=== PATIENT | female | born 1970 | race Caucasian/White ===

== ENCOUNTER 2016-12-31 19:35 | Emergency (ER) | payer OTHER ==
[~2016-12-31] VITALS: Ht 170.1 cm; Wt 81.6 kg
[~2016-12-31 19:35] MED LIST: ALBUTEROL2.5 MG/0.5 INH; ALEVE220 MG PO; BACTRIM DS 8001 TA1 PO; BP PILL; BREO ELLIPTA 21 EACH IH; CLARITIN10 MG PO; FLEXERIL10 MG PO; FLONASE 0.05% 121 EA NAS; HYDR12.5C PO; HYDROCODONE BIT1 T11 PO; LOMOTIL 0.025 M1 TA1 PO; MACROBID100 M1 PO; MOTRIN800 MG PO; NAPROSYN500 MG PO; NEURONTIN100 MG PO; PREDNICOT20 MG PO; PREDNISONE10 MG PO; PROAIR HFA0.09 MG/AC INH; ROBITUSSIN AC 110 ML PO; SUDAFED 12 HOU120 MG PO; ULTRAM50 MG PO; ZITHROMAX Z PA250 MG PO; ZITHROMAX250 MG PO; ZOFRAN ODT4 MG SL; Zofran4 MG PO
[2016-12-31] MEDS ORDERED: PREDNISONE10 MG PO (20:10)
== END 2016-12-31 20:22 | disposition home or self-care (01) ==
LOC: ED 19:35
DX: M54.16 Radiculopathy, lumbar region (principal); D17.1 Benign lipomatous neoplasm of skin and subcutaneous tissue of trunk; R20.9 Unspecified disturbances of skin sensation; M79.605 Pain in left leg; Z88.0 Allergy status to penicillin; Z88.1 Allergy status to other antibiotic agents; Z79.899 Other long term (current) drug therapy

== ENCOUNTER 2017-01-06 11:40 | Emergency (ER) | payer OTHER ==
[~2017-01-06] VITALS: Ht 170.1 cm; Wt 81.6 kg
== END 2017-01-06 13:23 | disposition home or self-care (01) ==
LOC: ED 11:40
DX: S60.221A Contusion of right hand, initial encounter (principal); Z88.0 Allergy status to penicillin; Z88.1 Allergy status to other antibiotic agents; Z79.899 Other long term (current) drug therapy; W50.1XXA Accidental kick by another person, initial encounter; Y93.9 Activity, unspecified; Y92.9 Unspecified place or not applicable; Y99.9 Unspecified external cause status

== ENCOUNTER 2017-05-01 12:09 | Emergency (ER) | payer OTHER ==
[~2017-05-01] VITALS: Ht 170.1 cm; Wt 77.1 kg
[2017-05-01 12:40] LABS: BASO # 0.1 10*3/uL (0.0-0.1); BASO % 0.6 % (0.0-1.0); EOS # 0.2 10*3/uL (0.0-0.4); EOS % 1.6 % (1.0-4.0); HEMATOCRIT 37.7 % (37.0-47.0); HEMOGLOBIN 12.6 g/dl (12.0-16.0); LYMPH # 2.6 10*3/uL (1.3-4.4); LYMPH % 25.8 % (27.0-41.0); MEAN CORPUSCULAR HGB 30.1 pg (27.0-31.0); MEAN CORPUSCULAR HGB CONC 33.4 g/dl (33.0-37.0); MEAN PLATELET VOLUME 11.4 fl (9.6-12.3); MONO # 0.8 10*3/uL (0.1-1.0); MONO % 8.2 % (3.0-9.0); NEUT # 6.4 10*3/uL (2.3-7.9); NEUT % 63.6 % (47.0-73.0); PLATELET COUNT AUTOMATED 196 10*3/uL (130-400); RED BLOOD COUNT 4.19 10*6/uL (4.10-5.10); RED CELL DISTRI WIDTH 12.2 % (0-14.5)
[2017-05-01] MEDS ORDERED: ROBITUSSIN DM 105 ML PO (12:46)
[2017-05-01] MEDS ORDERED: FLONASE ALLERG9.9 ML NAS (12:46)
[2017-05-01] MEDS ORDERED: PREDNISONE10 MG PO (12:46)
[2017-05-01] MEDS ORDERED: CLARITIN10 MG PO (12:46)
[2017-05-01 12:56] LABS: ALBUMIN 3.6 gm/dl (3.1-4.5); ALKALINE PHOSPHATASE 54 U/L (45-117); BUN 10 mg/dl (7-24); CHLORIDE 109 mmol/L (98-107); CREATININE 0.58 mg/dL (0.55-1.02); POTASSIUM 3.8 mmol/L (3.5-5.1); SGOT/AST 8 IU/L (3-35); SGPT/ALT 13 U/L (12-78); SODIUM 141 mmol/L (136-145); TOTAL PROTEIN 6.8 gm/dL (6.4-8.2)
[2017-05-01] MEDS ORDERED: DUONEB 3 MG/3 ML3 M1 INH (13:32)
== END 2017-05-01 13:29 | disposition home or self-care (01) ==
LOC: ED 12:09
PROVIDERS: Nurse Practitioner Family
DX: B34.9 Viral infection, unspecified (principal); R03.0 Elevated blood-pressure reading, without diagnosis of hypertension; Z98.890 Other specified postprocedural states; Z79.899 Other long term (current) drug therapy; Z88.0 Allergy status to penicillin; Z88.1 Allergy status to other antibiotic agents

== ENCOUNTER 2017-05-19 20:12 | Emergency (ER) | payer OTHER ==
[~2017-05-19] VITALS: Ht 170.1 cm; Wt 84.4 kg
[~2017-05-19 20:12] MED LIST changes: +DUONEB 3 MG/3 ML3 M1 INH; +FLONASE ALLERG9.9 ML NAS; +ROBITUSSIN DM 105 ML PO
[2017-05-19] MEDS ORDERED: ZITHROMAX250 MG PO (21:13)
== END 2017-05-19 21:17 | disposition home or self-care (01) ==
LOC: ED 20:12
DX: J01.00 Acute maxillary sinusitis, unspecified (principal); M54.30 Sciatica, unspecified side; J45.901 Unspecified asthma with (acute) exacerbation; Z88.0 Allergy status to penicillin; Z88.1 Allergy status to other antibiotic agents; Z79.899 Other long term (current) drug therapy

== ENCOUNTER → 2017-07-07 | Outpatient (CLI) | payer OTHER ==
[2017-07-07 16:22] LABS: BASO # 0.1 10*3/uL (0.0-0.1); BASO % 0.8 % (0.0-1.0); EOS # 0.1 10*3/uL (0.0-0.4); EOS % 1.2 % (1.0-4.0); HEMATOCRIT 38.8 % (37.0-47.0); HEMOGLOBIN 13.3 g/dl (12.0-16.0); LYMPH # 3.6 10*3/uL (1.3-4.4); LYMPH % 30.9 % (27.0-41.0); MEAN CELL VOLUME 89.2 fl (81.0-99.0); MEAN CORPUSCULAR HGB 30.6 pg (27.0-31.0); MEAN CORPUSCULAR HGB CONC 34.3 g/dl (33.0-37.0); MEAN PLATELET VOLUME 11.3 fl (9.6-12.3); MONO # 0.9 10*3/uL (0.1-1.0); MONO % 7.3 % (3.0-9.0); NEUT % 59.5 % (47.0-73.0); PLATELET COUNT AUTOMATED 220 10*3/uL (130-400); RED BLOOD COUNT 4.35 10*6/uL (4.10-5.10); RED CELL DISTRI WIDTH 12.6 % (0-14.5); WHITE BLOOD COUNT 11.7 10*3/uL (4.8-10.8)
[2017-07-07 16:47] LABS: THYROID STIM HORMONE (HS) 1.46 uIU/ml (0.358-4.75)
[2017-07-08 08:10] LABS: RHEUMATOID ARTHRITIS FACTOR <10.0 IU/mL (0.0-13.9)
[2017-07-08 11:04] LABS: ANA DIRECT Negative (Negative)
== END | disposition home or self-care (01) ==
LOC: ORTHO 02:17 → LAB 02:17 → ORTHO 18:45
PROVIDERS: Orthopaedic Surgery
DX: M06.831 Other specified rheumatoid arthritis, right wrist (principal); R53.82 Chronic fatigue, unspecified

== ENCOUNTER 2017-09-07 15:35 | Emergency (ER) | payer OTHER ==
[2017-09-07] MEDS ORDERED: ZITHROMAX250 MG PO (15:51)
[2017-09-07] MEDS ORDERED: ZYRTEC10 MG PO (15:51)
[2017-09-07] MEDS ORDERED: FLONASE ALLERG9.9 ML NAS (15:51)
== END 2017-09-07 15:59 | disposition home or self-care (01) ==
LOC: ED 15:35
DX: J01.90 Acute sinusitis, unspecified (principal); Z79.899 Other long term (current) drug therapy; Z98.890 Other specified postprocedural states; Z88.0 Allergy status to penicillin; Z88.1 Allergy status to other antibiotic agents

== ENCOUNTER → 2017-10-01 | Day surgery (SDC) | payer OTHER ==
[~2017-10-01] VITALS: Ht 170.1 cm; Wt 95.3 kg
[~2017-10-01] MED LIST changes: +LIDEX 0.05% CRE15 GM T; +NAPROXEN500 MG PO; +NORCO 5-325 TA1 EACH PO; +PRINIVIL10 MG PO; +ZYRTEC10 MG PO
--- NOTE | ~2017-10-01 | O ---
[place], [place] OPERATIVE NOTE NAME: MARILYN MENON UNIT #: [id number] ROOM: DOCTOR: DOMINICK DAHL MD BIRTHDATE: [birth year] DOS: 10/01/2017 PREOPERATIVE DIAGNOSIS: Back lipoma. POSTOPERATIVE DIAGNOSIS: Back lipoma. PROCEDURE: Excision of back lipoma. SURGEON: Dominick Dahl MD RESEARCH BIOSTATISTICIAN: KEON. ANESTHESIA: MAC with local (23 mL of 1% plain lidocaine). INDICATIONS: This is a 47-year-old lady with a longstanding history of a back lipoma who is here for the above-mentioned procedure. The procedure and its complications were explained to the patient in detail preoperatively. Complications that were discussed included but were not limited to bleeding, infection, hematoma/seroma/abscess formation, prolonged postoperative pain, and damage to lying vital structures. She agreed to proceed. DESCRIPTION OF PROCEDURE: After identifying the patient, the patient was brought to the operating suite and placed in a right lateral position. After IV sedation was administered, a timeout procedure was called and the parts were then painted and draped in the usual sterile fashion. A transverse incision was marked and local anesthesia was infiltrated. The skin incision was made and the edges were then dissected away from the lipoma with the help of blunt and sharp dissection. The lipoma was then removed in a piecemeal fashion and sent for histopathological diagnosis. Hemostasis was achieved and saline was used for irrigation. Thereafter, the subcutaneous tissue was approximated with the help of 3-0 Vicryl in a running fashion and the skin edges were then approximated with the help of 2-0 nylon in interrupted mattress fashion. A dressing was placed and the patient tolerated the procedure well and was brought back to the recovery room in a stable fashion. There were no complications. Dr. Dominick Dahl, the attending surgeon, was present throughout the operating case. [place], [place] OPERATIVE NOTE NAME: MARILYN MENON Stevie UNIT #: [id number] ROOM: DOCTOR: DOMINICK DAHL MD BIRTHDATE: [birth year] Dominick Dahl MD CM:OPRECORD:OPERATIVE NOTE [id number] DOMINICK DAHL MD 10/01/17 0901 interface
[2017-10-01 07:00] VITALS: BP 116/75
[2017-10-01 08:30] VITALS: BP 156/84
[2017-10-01 08:45] VITALS: BP 132/89
[2017-10-01 08:59] VITALS: BP 137/88
== END | disposition home or self-care (01) ==
LOC: SDC 09-25 09:30
DX: D17.1 Benign lipomatous neoplasm of skin and subcutaneous tissue of trunk (principal); I10 Essential (primary) hypertension; Z88.0 Allergy status to penicillin; J45.909 Unspecified asthma, uncomplicated; M06.9 Rheumatoid arthritis, unspecified; Z98.890 Other specified postprocedural states; Z79.899 Other long term (current) drug therapy; Z87.891 Personal history of nicotine dependence

== ENCOUNTER 2017-10-04 22:47 | Emergency (ER) | payer OTHER ==
[~2017-10-04] VITALS: Ht 170.1 cm; Wt 90.7 kg
[~2017-10-04 22:47] MED LIST changes: -LIDEX 0.05% CRE15 GM T
[2017-10-04] MEDS ORDERED: LIDEX 0.05% CRE15 GM T (23:29)
== END 2017-10-04 23:34 | disposition home or self-care (01) ==
LOC: ED 22:47
DX: R21 Rash and other nonspecific skin eruption (principal); Z79.899 Other long term (current) drug therapy; Z98.890 Other specified postprocedural states; Z88.0 Allergy status to penicillin; Z88.1 Allergy status to other antibiotic agents

== ENCOUNTER 2018-06-16 19:50 | Emergency (ER) | payer OTHER ==
[~2018-06-16] VITALS: Ht 170.1 cm; Wt 83.9 kg
[~2018-06-16 19:50] MED LIST changes: +LIDEX 0.05% CRE15 GM T; +LISINOPRIL-HCT1 EACH PO; +MONTELUKAST SOD10 MG PO; +TESSALON PERLE100 M1 PO
[2018-06-16] MEDS ORDERED: CLARITIN-D 121 EACH PO (21:05)
[2018-06-16] MEDS ORDERED: FLONASE ALLERG9.9 ML NAS (21:05)
== END 2018-06-16 21:19 | disposition home or self-care (01) ==
LOC: ED 19:50
DX: B34.9 Viral infection, unspecified (principal); H92.01 Otalgia, right ear; Z88.0 Allergy status to penicillin; Z88.1 Allergy status to other antibiotic agents; Z79.2 Long term (current) use of antibiotics; Z79.899 Other long term (current) drug therapy

== ENCOUNTER 2018-09-23 12:45 | Emergency (ER) | payer OTHER ==
[~2018-09-23] VITALS: Ht 170.1 cm; Wt 99.8 kg
--- NOTE | ~2018-09-23 | EKG ---
[place], [place] ELECTROCARDIOGRAM REPORT NAME: MARILYN MENON UNIT #: [id number] ROOM: DOCTOR: EPIPHANY DRAFT REPORT BIRTHDATE: [birth year] [facility] Test Date: 2018-09-23 Test Time: 13:36:31 Pat Name: MARILYN MENON Department: Room: Gender: F [employer] Mechanic: FARHANA : 1970 Requested By: LUIZ ALVES PA-C Order Number: [id number] Reading MD: Keith Rm Measurements Intervals [place] Rate: 64 P: 39 IN: 154 QRS: 16 QRSD: 88 T: 56 QT: 411 QTc: 424 Interpretive Statements Sinus rhythm Baseline wander in lead(s) II,III,aVR,aVF No previous ECG available for comparison Electronically Signed On 09-26-2018 8:56:50 PDT by Keith Rm CM:EKGRPT:ELECTROCARDIOGRAM REPORT [id number] LUIZ FUENTES DRAFT REPORT LUIZ ALVES PA-C
[~2018-09-23 12:45] MED LIST changes: +CLARITIN-D 121 EACH PO
[2018-09-23] MEDS ORDERED: PEPCID20 MG PO (16:01)
[2018-09-23] MEDS ORDERED: MEDROL DOSEPAK4 MG PO (16:01)
== END 2018-09-23 16:08 | disposition home or self-care (01) ==
LOC: ED 12:45
DX: L50.8 Other urticaria (principal); T43.295A Adverse effect of other antidepressants, initial encounter; F17.200 Nicotine dependence, unspecified, uncomplicated; Z98.890 Other specified postprocedural states; Z79.899 Other long term (current) drug therapy; Z88.0 Allergy status to penicillin; Z88.1 Allergy status to other antibiotic agents; Y92.89 Other specified places as the place of occurrence of the external cause

== ENCOUNTER → 2018-12-02 | Outpatient (CLI) | payer OTHER ==
[~2018-12-02] MED LIST changes: +MEDROL DOSEPAK4 MG PO; +PEPCID20 MG PO
== END | disposition home or self-care (01) ==
LOC: RAD 11:26
DX: M17.12 Unilateral primary osteoarthritis, left knee (principal); M25.762 Osteophyte, left knee; M25.462 Effusion, left knee

== ENCOUNTER 2018-12-17 16:22 | Emergency (ER) | payer OTHER ==
[~2018-12-17] VITALS: Ht 170.1 cm; Wt 89.4 kg
== END 2018-12-17 18:00 | disposition home or self-care (01) ==
LOC: ED 16:22
DX: S86.912A Strain of unspecified muscle(s) and tendon(s) at lower leg level, left leg, initial encounter (principal); Z88.0 Allergy status to penicillin; Z88.1 Allergy status to other antibiotic agents; Z79.899 Other long term (current) drug therapy; X58.XXXA Exposure to other specified factors, initial encounter; Y93.89 Activity, other specified; Y92.89 Other specified places as the place of occurrence of the external cause; Y99.8 Other external cause status

== ENCOUNTER 2020-05-14 19:45 | Emergency (ER) | payer OTHER ==
[~2020-05-14] VITALS: Ht 170.1 cm; Wt 95.3 kg
[2020-05-14 21:09] LABS: BASO # 0.1 10*3/uL (0.0-0.1); BASO % 0.7 % (0.0-1.0); EOS # 0.1 10*3/uL (0.0-0.4); HEMATOCRIT 44.7 % (37.0-47.0); LYMPH # 4.5 10*3/uL (1.3-4.4); MEAN CELL VOLUME 88.2 fl (81.0-99.0); MEAN CORPUSCULAR HGB 28.4 pg (27.0-31.0); MEAN CORPUSCULAR HGB CONC 32.2 g/dl (33.0-37.0); MEAN PLATELET VOLUME 11.7 fl (9.6-12.3); MONO % 7.5 % (3.0-9.0); NEUT # 7.8 10*3/uL (2.3-7.9); NEUT % 57.5 % (47.0-73.0); PLATELET COUNT AUTOMATED 301 10*3/uL (130-400); RED BLOOD COUNT 5.07 10*6/uL (4.10-5.10); RED CELL DISTRI WIDTH 12.1 % (0-14.5); WHITE BLOOD COUNT 13.6 10*3/uL (4.8-10.8)
[2020-05-14 21:28] LABS: ALBUMIN 3.7 gm/dl (3.1-4.5); ALKALINE PHOSPHATASE 68 U/L (45-117); BUN 7 mg/dl (7-24); CHLORIDE 107 mmol/L (98-107); CREATININE 0.63 mg/dL (0.55-1.02); POTASSIUM 3.6 mmol/L (3.5-5.1); SGOT/AST 13 IU/L (3-35); SGPT/ALT 18 U/L (12-78); SODIUM 141 mmol/L (136-145); TOTAL PROTEIN 7.7 gm/dL (6.4-8.2)
== END 2020-05-14 23:15 | disposition home or self-care (01) ==
LOC: ED 19:45
PROVIDERS: Emergency Medicine
DX: B34.9 Viral infection, unspecified (principal); J45.909 Unspecified asthma, uncomplicated; I10 Essential (primary) hypertension; Z88.8 Allergy status to other drugs, medicaments and biological substances; Z88.0 Allergy status to penicillin; Z79.899 Other long term (current) drug therapy; Z87.891 Personal history of nicotine dependence

== ENCOUNTER 2021-11-09 11:46 | Emergency (ER) | payer OTHER ==
[~2021-11-09] VITALS: Wt 79.8 kg
[2021-11-09] MEDS ORDERED: TYLENOL325 M1 PO (13:54)
[2021-11-09] MEDS ORDERED: AVPAK AZITHROM250 MG PO (13:54)
[2021-11-09] MEDS ORDERED: CYCLOBENZAPRINE10 MG PO (13:54)
[2021-11-09] MEDS ORDERED: NAPROXEN250 MG PO (13:54)
== END 2021-11-09 14:07 | disposition home or self-care (01) ==
LOC: ED 11:46
DX: M54.41 Lumbago with sciatica, right side (principal); H66.92 Otitis media, unspecified, left ear

== ENCOUNTER → 2021-12-13 | Outpatient (CLI) | payer OTHER ==
[~2021-12-13] MED LIST changes: +AVPAK AZITHROM250 MG PO; +CYCLOBENZAPRINE10 MG PO; +NAPROXEN250 MG PO; +TYLENOL325 M1 PO
[2021-12-13 10:38] LABS: BASO # 0.1 10*3/uL (0.0-0.1); EOS # 0.2 10*3/uL (0.0-0.4); EOS % 1.7 % (1.0-4.0); HEMATOCRIT 45.4 % (37.0-47.0); LYMPH # 2.8 10*3/uL (1.3-4.4); LYMPH % 30.1 % (27.0-41.0); MEAN CELL VOLUME 91.7 fl (81.0-99.0); MEAN CORPUSCULAR HGB 30.5 pg (27.0-31.0); MEAN CORPUSCULAR HGB CONC 33.3 g/dl (33.0-37.0); MEAN PLATELET VOLUME 11.7 fl (9.6-12.3); MONO # 0.7 10*3/uL (0.1-1.0); NEUT # 5.4 10*3/uL (2.3-7.9); NEUT % 58.9 % (47.0-73.0); PLATELET COUNT AUTOMATED 219 10*3/uL (130-400); RED BLOOD COUNT 4.95 10*6/uL (4.10-5.10); RED CELL DISTRI WIDTH 12.4 % (0-14.5); WHITE BLOOD COUNT 9.2 10*3/uL (4.8-10.8)
[2021-12-13 10:45] LABS: ALKALINE PHOSPHATASE 59 U/L (45-117); BUN 11 mg/dl (7-24); CHLORIDE 109 mmol/L (98-107); CHOLESTEROL 163 mg/dL (<200); CREATININE 0.58 mg/dL (0.55-1.02); LDL CHOLESTEROL 90 mg/dL (9-159); POTASSIUM 4.1 mmol/L (3.5-5.1); SGOT/AST 12 IU/L (3-35); SGPT/ALT 15 U/L (12-78); SODIUM 139 mmol/L (136-145); TOTAL PROTEIN 7.2 gm/dL (6.4-8.2); TRIGLYCERIDES 134 mg/dl (<150)
[2021-12-14 09:07] LABS: CREATININE,URINE 112.3 mg/dL (Not Estab.)
== END ==
LOC: LAB 10:08
PROVIDERS: ATTEND Family Medicine
DX: E11.9 Type 2 diabetes mellitus without complications (principal)

== ENCOUNTER 2022-04-01 20:28 | Emergency (ER) | payer OTHER ==
[~2022-04-01] VITALS: Ht 170.1 cm; Wt 83.0 kg
[2022-04-01] MEDS ORDERED: SEPTDS PO (20:53)
== END 2022-04-01 21:09 | disposition home or self-care (01) ==
LOC: ED 20:28
DX: L02.01 Cutaneous abscess of face (principal); Z98.890 Other specified postprocedural states; Z79.899 Other long term (current) drug therapy; Z79.2 Long term (current) use of antibiotics; Z88.0 Allergy status to penicillin; Z88.1 Allergy status to other antibiotic agents

== ENCOUNTER 2022-05-06 15:32 | Emergency (ER) | payer OTHER ==
[~2022-05-06] VITALS: Ht 170.1 cm; Wt 82.6 kg
[~2022-05-06 15:32] MED LIST changes: +SEPTDS PO
[2022-05-06] MEDS ORDERED: TRULICITY0.75 MG/0. SC (15:39)
[2022-05-06] MEDS ORDERED: CIPRODEX 0.3%-7.5 ML OT (16:06)
[2022-05-06] MEDS ORDERED: CEFDINIR300 MG PO (16:06)
== END 2022-05-06 16:15 | disposition home or self-care (01) ==
LOC: ED 15:32
DX: H66.91 Otitis media, unspecified, right ear (principal); H60.91 Unspecified otitis externa, right ear; Z88.0 Allergy status to penicillin; Z88.1 Allergy status to other antibiotic agents; Z79.899 Other long term (current) drug therapy; Z98.890 Other specified postprocedural states; Z90.89 Acquired absence of other organs

== ENCOUNTER 2022-08-19 15:08 | Emergency (ER) | payer OTHER ==
[~2022-08-19] VITALS: Ht 170.1 cm; Wt 91.2 kg
[~2022-08-19 15:08] MED LIST changes: +CEFDINIR300 MG PO; +CIPRODEX 0.3%-7.5 ML OT; +TRULICITY0.75 MG/0. SC
== END 2022-08-19 16:55 | disposition home or self-care (01) ==
LOC: ED 15:08
DX: M54.31 Sciatica, right side (principal); Z88.0 Allergy status to penicillin; Z88.1 Allergy status to other antibiotic agents; Z79.899 Other long term (current) drug therapy; Z98.890 Other specified postprocedural states; Z90.89 Acquired absence of other organs

== ENCOUNTER 2022-10-23 14:54 | Emergency (ER) | payer OTHER ==
[~2022-10-23] VITALS: Ht 170.1 cm; Wt 82.6 kg
[2022-10-23 16:01] LABS: BASO # 0.1 10*3/uL (0.0-0.1); BASO % 0.7 % (0.0-1.0); EOS # 0.1 10*3/uL (0.0-0.4); EOS % 1.1 % (1.0-4.0); HEMATOCRIT 42.5 % (37.0-47.0); LYMPH # 2.9 10*3/uL (1.3-4.4); LYMPH % 27.3 % (27.0-41.0); MEAN CELL VOLUME 88.4 fl (81.0-99.0); MEAN CORPUSCULAR HGB 30.1 pg (27.0-31.0); MEAN CORPUSCULAR HGB CONC 34.1 g/dl (33.0-37.0); MEAN PLATELET VOLUME 11.4 fl (9.6-12.3); MONO # 0.8 10*3/uL (0.1-1.0); MONO % 7.6 % (3.0-9.0); NEUT # 6.7 10*3/uL (2.3-7.9); PLATELET COUNT AUTOMATED 234 10*3/uL (130-400); RED BLOOD COUNT 4.81 10*6/uL (4.10-5.10); RED CELL DISTRI WIDTH 12.3 % (0-14.5); WHITE BLOOD COUNT 10.7 10*3/uL (4.8-10.8)
[2022-10-23 16:40] LABS: ALKALINE PHOSPHATASE 69 U/L (46-116); BUN 10 mg/dl (9-23); CHLORIDE 105 mmol/L (98-107); POTASSIUM 3.8 mmol/L (3.4-5.1); SGPT/ALT 25 U/L (10-49)
[2022-10-23] MEDS ORDERED: PREDNISONE10 MG PO (19:15)
[2022-10-23] MEDS ORDERED: CIPRODEX 0.3%-7.5 ML OT (19:15)
[2022-10-23] MEDS ORDERED: LEVOFLOXACIN750 M2 PO (19:15)
== END 2022-10-23 19:31 | disposition home or self-care (01) ==
LOC: ED 14:54
PROVIDERS: Student in an Organized Health Care Education/Training Program
DX: H92.01 Otalgia, right ear (principal); L02.414 Cutaneous abscess of left upper limb; I10 Essential (primary) hypertension; Z88.0 Allergy status to penicillin; Z88.1 Allergy status to other antibiotic agents; Z98.890 Other specified postprocedural states; Z87.891 Personal history of nicotine dependence

== ENCOUNTER 2022-11-03 17:01 | Emergency (ER) | payer OTHER ==
[~2022-11-03] VITALS: Ht 170.1 cm; Wt 83.9 kg
[~2022-11-03 17:01] MED LIST changes: +LEVOFLOXACIN750 M2 PO
[2022-11-03] MEDS ORDERED: KENALOG 0.025%15 GM T (17:59)
[2022-11-07] MEDS ORDERED: ELDERBERRY350 MG PO (15:31)
[2022-11-07] MEDS ORDERED: METFORMIN HYDR500 MG PO (15:31)
== END 2022-11-03 18:21 | disposition home or self-care (01) ==
LOC: ED 17:01
DX: L23.7 Allergic contact dermatitis due to plants, except food (principal); I10 Essential (primary) hypertension; E11.9 Type 2 diabetes mellitus without complications; Z88.0 Allergy status to penicillin; Z88.1 Allergy status to other antibiotic agents; Z98.890 Other specified postprocedural states; Z87.891 Personal history of nicotine dependence

== ENCOUNTER → 2022-11-10 | Day surgery (SDC) | payer OTHER ==
[~2022-11-10] VITALS: Ht 170.1 cm; Wt 95.3 kg
[~2022-11-10] MED LIST changes: +ELDERBERRY350 MG PO; +KENALOG 0.025%15 GM T; +METFORMIN HYDR500 MG PO
[2022-11-10 09:10] VITALS: BP 156/79
[2022-11-10 10:21] VITALS: BP 158/92
[2022-11-10 10:36] VITALS: BP 177/81
[2022-11-10 10:51] VITALS: BP 178/90
[2022-11-10 11:06] VITALS: BP 180/98
== END | disposition home or self-care (01) ==
LOC: SDC 11-06 11:45
PROVIDERS: ATTEND Specialist
DX: H66.001 Acute suppurative otitis media without spontaneous rupture of ear drum, right ear (principal); H65.491 Other chronic nonsuppurative otitis media, right ear; I10 Essential (primary) hypertension; Z87.891 Personal history of nicotine dependence; F41.9 Anxiety disorder, unspecified; E11.9 Type 2 diabetes mellitus without complications; Z88.0 Allergy status to penicillin

== ENCOUNTER 2023-04-10 05:13 | Emergency (ER) | payer OTHER ==
[~2023-04-10] VITALS: Ht 170.1 cm; Wt 86.2 kg
[2023-04-10] MEDS ORDERED: CIPROFLOX-DEXA7.5 ML OT (05:34)
[2023-04-10] MEDS ORDERED: OMNICEF300 MG PO (05:34)
== END 2023-04-10 05:41 | disposition home or self-care (01) ==
LOC: ED 05:13
DX: H66.91 Otitis media, unspecified, right ear (principal); R68.84 Jaw pain; F17.200 Nicotine dependence, unspecified, uncomplicated; Z96.22 Myringotomy tube(s) status; Z88.0 Allergy status to penicillin; Z88.1 Allergy status to other antibiotic agents; Z79.899 Other long term (current) drug therapy; Z98.890 Other specified postprocedural states; Z87.442 Personal history of urinary calculi

== ENCOUNTER 2023-07-02 07:09 | Emergency (ER) | payer OTHER ==
[~2023-07-02] VITALS: Ht 170.1 cm; Wt 129.3 kg
[~2023-07-02 07:09] MED LIST changes: +CIPROFLOX-DEXA7.5 ML OT; +OMNICEF300 MG PO
[2023-07-02] MEDS ORDERED: TAMIFLU 75MG CA75 MG PO (09:23)
== END 2023-07-02 09:33 | disposition home or self-care (01) ==
LOC: ED 07:09
DX: J11.1 Influenza due to unidentified influenza virus with other respiratory manifestations (principal); Z20.822 Contact with and (suspected) exposure to COVID-19; I10 Essential (primary) hypertension; Z88.0 Allergy status to penicillin; Z88.1 Allergy status to other antibiotic agents; Z98.890 Other specified postprocedural states

== ENCOUNTER → 2024-01-29 | Outpatient (CLI) | payer OTHER ==
[~2024-01-29] MED LIST changes: +TAMIFLU 75MG CA75 MG PO
== END | disposition home or self-care (01) ==
LOC: RAD 17:17
PROVIDERS: ATTEND Family Medicine
DX: M43.12 Spondylolisthesis, cervical region (principal); M19.011 Primary osteoarthritis, right shoulder; M47.812 Spondylosis without myelopathy or radiculopathy, cervical region; R20.0 Anesthesia of skin; M25.519 Pain in unspecified shoulder

== ENCOUNTER → 2024-02-18 | Outpatient (CLI) | payer OTHER ==
[2024-02-18 15:39] LABS: BASO # 0.1 10*3/uL (0.0-0.1); BASO % 0.7 % (0.0-1.0); EOS # 0.1 10*3/uL (0.0-0.4); EOS % 1.6 % (1.0-4.0); HEMATOCRIT 45.2 % (37.0-47.0); LYMPH # 3.1 10*3/uL (1.3-4.4); LYMPH % 37.2 % (27.0-41.0); MEAN CORPUSCULAR HGB 29.3 pg (27.0-31.0); MEAN CORPUSCULAR HGB CONC 32.5 g/dl (33.0-37.0); MEAN PLATELET VOLUME 11.6 fl (9.6-12.3); MONO # 0.5 10*3/uL (0.1-1.0); MONO % 6.4 % (3.0-9.0); NEUT # 4.5 10*3/uL (2.3-7.9); NEUT % 53.9 % (47.0-73.0); PLATELET COUNT AUTOMATED 219 10*3/uL (130-400); RED BLOOD COUNT 5.02 10*6/uL (4.10-5.10); RED CELL DISTRI WIDTH 12.7 % (0-14.5); WHITE BLOOD COUNT 8.3 10*3/uL (4.8-10.8)
[2024-02-18 16:04] LABS: ALKALINE PHOSPHATASE 83 U/L (46-116); BUN 11 mg/dl (9-23); CHLORIDE 105 mmol/L (98-107); CHOLESTEROL 201 mg/dL (<200); LDL CHOLESTEROL 119 mg/dL (9-159); POTASSIUM 4.1 mmol/L (3.4-5.1); SGPT/ALT 8 U/L (5-49); TOTAL PROTEIN 6.8 gm/dL (6.0-8.0); TRIGLYCERIDES 149 mg/dl (<150)
== END | disposition home or self-care (01) ==
LOC: LAB 15:06
PROVIDERS: ATTEND Family Medicine
DX: E11.9 Type 2 diabetes mellitus without complications (principal); E55.9 Vitamin D deficiency, unspecified; E78.1 Pure hyperglyceridemia

== ENCOUNTER 2024-07-21 15:19 | Emergency (ER) | payer SELFPAY | END 2024-07-21 19:49 | disposition left against medical advice (07) | LOC: ED 15:19 | DX: M25.511 Pain in right shoulder (principal); M54.9 Dorsalgia, unspecified; Z53.21 Procedure and treatment not carried out due to patient leaving prior to being seen by health care provider ==